=== PATIENT | female | born 1945 | race Caucasian/White ===

== ENCOUNTER 2017-01-03 10:26 | Day surgery (SDC) | payer MEDICARE, OTHER ==
--- NOTE | ~2017-01-03 | EGD ---
EGD REPORT [facility] [address] [place] [id number] NAME: REBEL REYNOSO : [birth year] STATUS : REG [facility]#: [id number] AGE: 71 ADM/REG DATE : 01/03/17 MR#: [id number] REPORT SERV DATE: 01/03/17 DICTATED BY: STORMY MORIN DATE: 01/03/17 REPORT STATUS : Draft TRANSCRIBED BY: [facility] DATE: 01/03/17 Endoscopy Center Patient Name: Rebel Reynoso Date of : 1945 Attending MD: STORMY MORIN MD Procedure Date No Time: 01/03/2017 Procedure: Upper GI endoscopy Indications: Heartburn, Suspected esophageal reflux, Unexplained chest pain Referring MD: KIKI OROPEZA Medicines: Monitored Anesthesia Care Complications: No immediate complications. Procedure: Pre-Anesthesia Assessment: - ASA Grade Assessment: II - A patient with mild systemic disease. After obtaining informed consent, the endoscope was passed under direct vision. Throughout the procedure, the patient's blood pressure, pulse, and oxygen saturations were monitored continuously. The GIF [id number] was introduced through the mouth, and advanced to the second part of duodenum. The upper GI endoscopy was accomplished without difficulty. The patient tolerated the procedure well. Findings: The examined esophagus was normal. The lower third of the esophagus was normal. Biopsies were taken with a cold forceps for histology. The entire examined stomach was normal. The cardia and gastric fundus were normal on retroflexion. The first part of the duodenum and 2nd part of the duodenum were normal. Impression: - Normal esophagus. - Normal lower third of esophagus. Biopsied. - Normal stomach. - Normal first part of the duodenum and 2nd part of the duodenum. Recommendation: - Patient has a contact number available for emergencies. The signs and symptoms of potential delayed complications were discussed with the patient. Return to normal activities tomorrow. Written discharge instructions were provided to the patient. - Regular diet. - Continue present medications. EGD REPORT [facility] [address] [id number] NAME: REBEL REYNOSO : [birth year] STATUS : REG [facility]#: [id number] AGE: 71 ADM/REG DATE : 01/03/17 MR#: [id number] REPORT SERV DATE: 01/03/17 DICTATED BY: STORMY MORIN DATE: 01/03/17 REPORT STATUS : Draft TRANSCRIBED BY: [email or web address] DATE: 01/03/17 - Follow an antireflux regimen. - Return to GI clinic in 2 months. Procedure Code(s): --- Professional --- 36246, Esophagogastroduodenoscopy, flexible, transoral; with biopsy, single or multiple Diagnosis Code(s): --- Professional --- R12, Heartburn R07.9, Chest pain, unspecified CPT copyright 2013 [employer]. All rights reserved. The codes documented in this report are preliminary and upon tile finisher review may be revised to meet current compliance requirements. STORMY MORIN MD 01/03/2017 12:28 PM This report has been signed electronically. Number of Addenda: 0 Note Initiated On: 01/03/2017 12:11 PM Scope Withdrawal Time 0 hours 0 minutes 0 seconds [id number] [facility] [place] [id number]
[~2017-01-03 10:26] MED LIST: BEN25 PO; CALTRA600D PO; ECHINACEA167 MG PO; ESTRACE0.5 MG PO; FISH-EPA1000 MG PO; HYDROCHLOROT25 MG PO; LEVOTHYROXIN50 MCG PO; LIPITOR40 PO; LOFIBRA54 MG PO; PROBIOTIC; PROTONIX PO; ZESTRIL10 MG PO; ZYRTEC ALLGY10 MG PO
== END 2017-01-03 23:59 | disposition home or self-care (01) ==
LOC: DMU 10:26
PROVIDERS: Internal Medicine Gastroenterology
PROC: 0DB38ZX Excision of Lower Esophagus, Via Natural or Artificial Opening Endoscopic, Diagnostic (ICD-10-PCS; principal; 2017-01-03 13:00)
DX: K21.9 Gastro-esophageal reflux disease without esophagitis (principal); I10 Essential (primary) hypertension; E03.9 Hypothyroidism, unspecified; Z87.891 Personal history of nicotine dependence; Z79.52 Long term (current) use of systemic steroids; Z79.899 Other long term (current) drug therapy; Z98.41 Cataract extraction status, right eye; Z98.42 Cataract extraction status, left eye; Z90.89 Acquired absence of other organs; Z90.710 Acquired absence of both cervix and uterus; Z98.51 Tubal ligation status; Z98.890 Other specified postprocedural states
CPT/HCPCS: 88305; A9270-GY